=== PATIENT | male | born 1995 | race Two or more races ===

== ENCOUNTER 2017-06-18 23:51 | Emergency (ER) | payer MEDICAID ==
--- NOTE | 2017-06-19 00:02 | ED Physician Chart ---
Chief Complaint/HPI - Patient Information Date Seen:: 06/18/17 Time Seen:: 23:55 Chief Complaint:: Eye redness History of Present Illness:: 21-year-old male, otherwise healthy, complains of acute, constant, worsening, moderate, right eye redness since yesterday morning. Has associated discharge from the eye is slightly purulent. Seems worse in the morning. Denies any vision changes. Review of Systems - Review of Systems Other: Complete system review otherwise unremarkable except as noted in history of present illness. Past Medical History - Past Medical History Past Medical History: No significant medical hx Family History: None Social History: Non Smoker, No Alcohol, No Drug Use Surgical History: None Psychiatricy History: None Medication: None Family Medical History - Family Member Father Ethnicity: Hx Family Cancer: No Hx Family Coronary Artery Disease: No Hx Family Congestive Heart Failure: No Hx Family Hypertension: No Physical Exam - Physical Examination Other:: INITIAL VITAL SIGNS: Reviewed by me GENERAL: Alert and interactive. No acute distress HEAD: Head is normocephalic and atraumatic EYES: EOMI. PERRL. No scleral icterus. Right conjunctival injection. There is dried crusted discharge within the lashes of the upper eyelid on the right side. Gross vision intact. Eye Exam - right: Visual Acuity: 20/20 Visual Naik: Intact in all four quadrants bilaterally Lac ducts/glands: No swelling Lids w/ evertion: Normal, no foreign body Conj/[place]: Injected sclera Anterior Chamber: Clear Retina exam: No obvious abnormality ENT: Moist mucous membranes. NECK: Supple. No masses. Full range of motion RESPIRATORY: No tachypnea. Clear breath sounds bilaterally. No wheezing, rales, or rhonchi CV: Regular rate and rhythm. No murmurs, rubs, or gallops ABDOMEN: Soft, non-distended, non-tender. No guarding. No rebound. No masses. EXTREMITIES: No deformity. No cyanosis. No edema. SKIN: Warm and dry. No obvious rashes. NEUROLOGIC: Alert and oriented. Face is symmetric. Speech is normal. Moves all extremities equally. Motor and sensory distally intact. ED Septic Shock - . Is Septic Shock (SBP<90, OR Lactate>4 mmol\L) present?: No Reassessment (Disposition) - Reassessment Reassessment:: Patient has acute conjunctivitis of the right eye. Likely bacterial given the crusting and unilateral distribution. We did prescribe Polytrim ophthalmic drops for the conjunctivitis. Recommended follow-up with primary care 1-2 days. Return to ER precautions given. Patient says he understands and agrees the plan. Reassessment Condition:: Improved - Diagnosis Diagnosis:: Acute right-sided conjunctivitis due to unspecified bacteria Blood pressure was noted to be elevated over 120/80. There were no signs of hypertension. Discussed the findings with the patient and recommended that the patient follow up with the primary care physician regarding the elevated blood pressure. - Aftercare/Follow up Instructions Aftercare/Follow-Up Instructions:: Counseled pt regarding lab results/diagnosis & need follow up, Refer to Discharge Instructions - Patient Disposition Discharge/Transfer:: Home Time:: 00:09 Condition at Disposition:: Improved ED Discharge Plan - Patient Disposition Admit/Discharge/Transfer: PT DISCHARGED HOME Instructions: Conjunctivitis (Viral and Bacterial) Additional Instructions: apply eye medication as ordered follow up with your primary medical doctor in 2-3 days if not feeling better
== END 2017-06-19 00:10 | disposition home or self-care (01) ==
LOC: ER 23:51
DX: H10.31 Unspecified acute conjunctivitis, right eye (principal)
CPT/HCPCS: Z7502